=== PATIENT | female | born 2000 | race Caucasian/White ===

== ENCOUNTER 2020-09-07 13:43 | Emergency (ER) | payer MEDICAID ==
[~2020-09-07] VITALS: Ht 180.3 cm; Wt 90.0 kg
--- NOTE | 2020-09-07 14:16 | NUR ---
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
[2020-09-07] MEDS ORDERED: normal saline 1000ML IV soln IVB ONE (14:25)
--- NOTE | 2020-09-07 15:45 | NUR ---
ASSISTED UP TO COMMODE, UNABLE TO URINATE
[2020-09-07 15:52] LABS: BASOPHILS % (AUTO) 0.4 % (0-1); EOSINOPHILS % (AUTO) 0.4 % (0-6); HEMATOCRIT 40.3 % (35.0-45.0); LYMPHOCYTES # (AUTO) 0.8 X10'3 (1.1-4.8); LYMPHOCYTES % (AUTO) 10.1 % (21-51); MEAN CORPUSCULAR HEMOGLOBIN 30.2 PG (27.0-31.0); MEAN CORPUSCULAR HGB CONC 34.7 g/dL (33.0-36.5); MEAN PLATELET VOLUME 6.9 FL (7.4-10.4); MONOCYTES # (AUTO) 0.3 X10'3 (0-0.9); MONOCYTES % (AUTO) 3.9 % (2-12); NEUTROPHILS # (AUTO) 6.9 X10'3 (1.8-7.7); NEUTROPHILS % (AUTO) 85.2 % (42-75); PLATELET COUNT 372 X10'3 (140-440); RED BLOOD COUNT 4.63 X10'6 (4.20-5.60); RED CELL DISTRIBUTION WIDTH 12.6 % (11.5-14.5); WHITE BLOOD COUNT 8.1 X10'3 (4.5-11.0)
[2020-09-07 16:02] LABS: ALANINE AMINOTRANSFERASE 17 U/L (12-78); ALBUMIN 4.4 G/DL (3.4-5.0); ALBUMIN/GLOBULIN RATIO 1.3 (1.1-1.5); ALKALINE PHOSPHATASE 61 IU/L (46-116); ANION GAP 14 (8-16); ASPARTATE AMINO TRANSFERASE 11 U/L (10-37); BILIRUBIN,TOTAL 0.9 MG/DL (0.1-1.0); BLOOD UREA NITROGEN 9 MG/DL (7-18); CALCIUM 8.2 MG/DL (8.5-10.1); CHLORIDE 105 MMOL/L (99-107); CREATININE 0.82 MG/DL (0.40-0.90); ETHANOL < 0.010 GM/DL (0.0-0.010); GLUCOSE 87 MG/DL (70-104); POTASSIUM 3.4 MMOL/L (3.5-5.1); SODIUM 141 MMOL/L (135-145); TOTAL CARBON DIOXIDE 22.4 MMOL/L (24-32); TOTAL PROTEIN 7.9 G/DL (6.4-8.2); eGFR 87 ML/MIN
[2020-09-07 16:08] LABS: ACETAMINOPHEN < 2.0 UG/ML (10-30)
--- NOTE | 2020-09-07 17:00 | NUR ---
WALKED TO BATHROOM, UNABLE TO URINATE
[2020-09-07 18:00] LABS: URINE HCG NEGATIVE (NEG)
--- NOTE | 2020-09-07 18:07 | NUR ---
PT TRYING TO GET UP OUT OF BED, REDIRECTED.
--- NOTE | 2020-09-07 18:09 | NUR ---
JANET[place] MARCUS [place] [place] [phone]
[2020-09-07 18:11] LABS: URINE AMPHETAMINE SCREEN NEGATIVE (Neg); URINE BARBITUATE SCREEN NEGATIVE (Neg); URINE BENZODIAZEPINES SCREEN NEGATIVE (Neg); URINE CANNABINOID SCREEN NEGATIVE (Neg); URINE COCAINE SCREEN NEGATIVE (Neg); URINE METHADONE SCREEN NEGATIVE (Neg); URINE OPIATE SCREEN NEGATIVE (Neg); URINE PHENCYCLIDINE SCREEN NEGATIVE (Neg)
--- NOTE | 2020-09-07 18:15 | NUR ---
TABS ALARM PLACED
[2020-09-07] MEDS ORDERED: potassium Cl 20 mEq SR tablet PO ONE (22:00)
[2020-09-07 22:03] LABS: MAGNESIUM 1.7 MG/DL (1.5-2.4)
--- NOTE | 2020-09-07 23:35 | NUR ---
UPDATED POISON CONTROL WITH 2ND EKG, RECOMMENDS SUPPORTIVE CARE UNTIL BASELINE. THEY DO NOT EXPECT ANY WORSENING AT THIS TIME, SIGNING OFF THE CASE AT THIS TIME.
[2020-09-08] MEDS ORDERED: NO HOME MEDS (00:16)
[2020-09-08 05:02] VITALS: BP 132/78
--- NOTE | 2020-09-08 07:04 | NUR ---
patient in the room, we will continue to monitor.
--- NOTE | 2020-09-08 11:13 | NUR ---
MOTHER HERE TO VISIT AND BROUGHT PATIENT'S GLASSES. POSITIVE INTERACTION, CONVERSING WITH PATIENT.
[2020-09-13] MEDS ORDERED: TRAZ-251 PO (09:16)
[2020-09-13] MEDS ORDERED: ESCI5TAB PO (09:16)
== END 2020-09-08 13:20 ==
LOC: ER 13:43
DX: T45.0X2A Poisoning by antiallergic and antiemetic drugs, intentional self-harm, initial encounter (principal); F32.9 Major depressive disorder, single episode, unspecified; Y92.89 Other specified places as the place of occurrence of the external cause
CPT/HCPCS: 36415; 80053; 80305; 80320; 80329; 81025; 83735; 85025; 93005; 96360; 99285; J7030

== ENCOUNTER 2021-08-18 15:12 | Emergency (ER) | payer MEDICAID ==
[~2021-08-18] VITALS: Ht 180.3 cm; Wt 94.0 kg
[~2021-08-18 15:12] MED LIST: ESCI5TAB PO; TRAZ-251 PO
[2021-08-18 16:22] VITALS: BP 119/71
[2021-08-18] MEDS ORDERED: IBUP-1986 PO (16:47)
[2021-08-18] MEDS ORDERED: AMOX-101 PO (16:47)
[2021-08-18] MEDS ORDERED: ibuprofen tablet 400 MG TABLET PO ONE (16:50)
[2021-08-18] MEDS ORDERED: amoxicillin 250mg capsule PO ONE (16:50)
== END 2021-08-18 17:00 | disposition home or self-care (01) ==
LOC: ER 15:13
DX: K04.7 Periapical abscess without sinus (principal); Z79.2 Long term (current) use of antibiotics; Z79.899 Other long term (current) drug therapy
CPT/HCPCS: 99283